=== PATIENT | female | born 1970 | race Caucasian/White ===

== ENCOUNTER 2020-01-11 09:25 | Outpatient (CLI) | payer OTHER, SELFPAY ==
--- NOTE | 2020-01-11 09:32 | IR_ITS ---
WS: [id number] CERVICAL MYELOGRAM HISTORY: Neck pain COMPARISON: MRI 08/25/2019 FLUOROSCOPY TIME: 1.1 minutes. Procedure, risks and complications were explained to the patient. Risks including bleeding, infection , headaches, allergic reaction and seizures. Consent has been obtained. With the patient in prone position the skin over the lumbar region is cleansed with ChloraPrep and an esthetized with lidocaine. 22-gauge spinal needle is inserted into the thecal sac at the appropriate level determined by fluoroscopy. Omnipaque 300; 12 ml is injected slowly under fluoroscopy with no co mplications. Needle bevel is perpendicular to the longitudinal fibers of the dura. Stylet is reinsert ed prior to removal of the needle. Patient tolerated the procedure well. Patient will proceed to CT f or further evaluation. Good injection of the thecal sac. Straightening of the normal cervical lordosis. Moderate to severe d egenerative disc disease at C5-6 and C6-7. C5 retrolisthesis by 2 mm with no significant change durin g flexion or extension. There are large osteophytes extend posteriorly from C5 and C6. With flexion a nd extension no significant instability. IR/IR myelogram sp cervical [id number] IMPRESSION: 1. Uncomplicated cervical myelogram. Please see CT report to follow. 2. Advanced degenerative disc disease at C5-6 and C6-7 with large osteophytes. 3. Slight retrolisthesis by 2 mm of C5. No instability.
--- NOTE | 2020-01-11 09:32 | CT_ITS ---
WS: [id number] CT CERVICAL MYELOGRAM HISTORY: Neck pain Technique: All CT scans at [facility] use at least one of these dose optimization techniq ues: automated exposure control; mA and/or kV adjustment per patient size (includes targeted exams wh ere dose is matched to clinical indication); or iterative reconstruction. DLP: 1495.88 mGycm COMPARISON: MRI C-spine 08/25/2019 Good opacification of thecal sac with contrast. Straightening of the normal cervical lordosis with slight reversal of curvature at C3-4. Moderate deg enerative disc disease at C5-6 and C6-7. Endplate osteophytes most significant at C5 and C6. Cranioce rvical junction is normal. Lateral masses of C1 and C2 are aligned odontoid is intact. There is sligh t RIGHT convex of the cervical spine. C1-C2: Normal. C2-C3: Normal. C3-C4: Mild asymmetric osteophytic ridging, slightly greater to the LEFT. Very minimal deformity of t he LEFT lateral thecal sac with no stenosis. C4-C5: Mild osteophytic ridging and shallow central disc protrusion and facet arthropathy. Mild bilat eral foraminal stenosis. C5-C6: Diffuse osteophytic ridging. Large RIGHT paracentral osteophyte extends posteriorly by 6.6 mm and effaces CSF on the RIGHT with cord contact and displacement. Severe RIGHT foraminal stenosis pred ominantly due to osteophyte. Mild stenosis on the LEFT and mild central stenosis. C6-C7: Diffuse osteophytic ridging, osteophytes extending greatest to the RIGHT with mild cord contac t and displacement. Moderate to severe RIGHT foraminal stenosis. Mild central and LEFT foraminal sten osis. LEFT thyroid is slightly enlarged which is probably multinodular. CT/CT cervical spine w con [id number] IMPRESSION: 1. Moderate degenerative disc disease at C5-6 and C6-7. 2. Large RIGHT paracentral osteophyte at C5-6 extends towards the cervical can al by 6.6 mm. Effacement of CSF and cord contact and displacement. 3. Severe RIGHT foraminal stenosis at C5-6 with mild central and LEFT foramina l stenosis. 4. Moderate RIGHT foraminal stenosis at C6-7 due to osteophyte disease. Mild c entral and LEFT foraminal stenosis at C6-7. 5. Straightening reversal of the normal cervical lordosis.
[2020-01-11] MEDS: iohexol 300 mg/mL 50 mL Btl INTRATHECA (10:23)
== END 2020-01-11 09:26 | disposition home or self-care (01) ==
LOC: RADWPI 09:29
PROVIDERS: Family Provider Internal Medicine; PCP Internal Medicine; Visit Provider Licensed Practical Nurse
DX: M50.020 Cervical disc disorder with myelopathy, mid-cervical region, unspecified level (principal); M47.892 Other spondylosis, cervical region; M48.02 Spinal stenosis, cervical region; M25.78 Osteophyte, vertebrae
CPT/HCPCS: 62302; 72040; 72126; Q9967

== ENCOUNTER → 2020-01-26 08:09 | Outpatient (BNVA) | payer OTHER, SELFPAY | PROVIDERS: Family Provider Internal Medicine; PCP Internal Medicine; Referring Provider Licensed Practical Nurse; Visit Provider Psychiatry & Neurology Neurology | DX: M54.12 Radiculopathy, cervical region (principal) | CPT/HCPCS: 95886; 95910 ==

== ENCOUNTER → 2020-10-19 13:45 | Outpatient (BNVA) | payer OTHER, SELFPAY | PROVIDERS: PCP Internal Medicine; Visit Provider Orthopaedic Surgery | DX: Z20.828 Contact with and (suspected) exposure to other viral communicable diseases (principal) | CPT/HCPCS: 87635 ==

== ENCOUNTER 2020-10-25 09:00 | Day surgery (SDC) | payer OTHER, SELFPAY ==
[2020-10-18 09:22] VITALS: BMI 34.2
--- NOTE | 2020-10-18 09:43 | ANES.PREANE2 ---
Pre-Anesthetic Assessment Pre-Anesthetic Assessment: Height/Weight: Height 1.57 m Weight 84.822 kg Preop Diagnosis: cervical stenosis Proposed Procedure: Operation Date: 10/25/20 09:25 Proposed Procedures p Anterior Cervical Discectomy & Fusion C 5/6 C6/7 ACDF 07847 11509 20881 14302 06957 M47.22(Not Applicable) - Mono Tinsley DO Was Beta Martita taken within 24 hours: N/A Social: Social History: No alcohol and No tobacco Exam: Pre-Anes Outpt Exam: alert, oriented x 3, clear to auscultation bilaterally and regular rate & rhythm Airway: Submandibular: WNL Cervical ROM: WNL MP: 2 Additional comments: Missing several on upper arch Pulmonary: Pulmonary: None reported CV/HEM: CV/HEM: HTN and None reported : : None reported Hepatic: Hepatic: None reported GI: GI: GERD Metabolic: Metabolic: Morbid obesity Musc/skel: Musc/skel: Weakness Comments: Neck pain, BUE numbness L>R Neuropsych: Neuropsych: None reported Anesthetic Plan: ASA status: 3 Anesthesia: General Risk of > 500 ml blood loss (7ml/kg in children): No PFSH Anesthesia PFSH: Medical History (Updated 09/08/20 @ 10:16 by Mono Tinsley DO) Cervical disc disorder with myelopathy of mid-cervical region Cervical spinal stenosis Hiatal hernia Left shoulder strain Surgical History History of shoulder surgery right History of tubal ligation Family History Mother Diabetes Hypertension Father Prostate cancer Hypertension Social History Smoking and tobacco status: never smoked Alcohol intake: never Household members: spouse Marital status: Current occupational status: employed and other Current occupation: [employer] History of recent travel: No Data Anesthesia Cardiac Studies: No Data to Display
[2020-10-25] VITALS (11 sets, daily range): BP systolic 118–171; BP diastolic 67–104; PULSE 88–115; RESP 12–19; TEMP 36.5–36.6; O2SAT 93–100
--- NOTE | 2020-10-25 | XR_ITS ---
WS: [id number] Cervical spine, AP and lateral C-arm fluoroscopy in the OR, 10/25/2020 Clinical Data: C5/C6; C6/C7 acdf Comparison: None. Findings: The patient has had an anterior cervical disc fusion of C5, C6 and C7. XR/XR cervical spine 3V* [id number] Impression: Anterior cervical disc fusion C5-C7.
--- NOTE | 2020-10-25 | SCC_ITS ---
Procedure Done: 1. Anterior diskectomy C5/6 2. Anterior discectomy C6/7 3. Insertion of cage C5/6 4. Insertion of Cage C6/7 5. Instrumentation with anterior plate from C5-C7 6. Use of allograft 26.2 seconds of fluoroscopic guidance, for a cumulative dose of 1.72 mGy, was provided to Dr. Tinsley by the radiology department. C-arm images of the cervical spine were saved for the patient's permanent record. LUANAD
[2020-10-25] MEDS: sodium chloride 0.9% 1,000 ML 30 ML IV (09:41)
--- NOTE | 2020-10-25 10:00 | P.ANESUD_ITS ---
Pre-Anesthetic Update Pre-Anesthetic Assessment: Date of Surgery/Procedure: 10/25/20 Preop Sofi gnosis: cervical stenosis Proposed Procedure: Operation Date: 10/25/20 10:45 Proposed Procedures p Anterior Cervical Discectomy & Fusion C 5/6 C6/7 ACDF 85986 04936 93537 24089 65397 M47.22(Not Applicable) - Mono Tinsley, DO Any changes to Pre-Anesthetic Assessment?: No Last Intake: Intake Last Liquid Date 10/24/20 Last Liquid Time 22:00 Last Solid Date 10/24/20 Last Solid Time 18:00 Vitals: Temperature 97.8 F 10/25/20 09:17 Temperature Source Temporal Artery S can 10/25/20 09:17 Pulse Rate 107 H 10/25/20 09:17 Respiratory Rate 18 10/25/20 09:17 Blood Pressure 171/104 10/25/20 09:17 Blood Pressure Fany n 126 10/25/20 09:17 Pulse Oximetry 100 10/25/20 09:17 Oxygen Delivery Me thod 10/25/20 09:17 Exam: Pre-Anes Outpt Exam: alert, oriented x 3, clear to auscultation bilaterally and regular rate & rhythm Cardiac Studies: No Data to Display
--- NOTE | 2020-10-25 11:35 | P.HP_ITS ---
Providers/Chief Complaint Primary Care Provider: Angelica Rausch MD Chief Complaint: C 5/6 C6/7 ACDF History of Present Illness HPI: This is a 50 year old female patient here today for evaluation of her right elbow, left shoulder and neck pain that she began having after an injury 06/06/2019. Patient states that she was opening a dryer door and that she had a POP which began to cause pain. Patient states that the neck pain began october 06, 2019 and that the elbow pain she feels is from over compensation and began in October 2019. Onset: 06/06/20 Duration: year plus Characteristics: buring, sharp, aching Severity: mild Location: elbow on right left shoulder, and left neck. Radiating symptoms: Aggravating factors: movement Alleviating factors: nothing Neuro deficits: patient denies numbness, tingling, weakness, incontinence of bowel/bladder, saddle anesthesia. Prior tx: therapy and bracing Current symptoms: Denies fever(s) or anxiety Review of Systems Narrative: HPI: This is a new 50 year old female patient here today for evaluation of her right elbow, left shoulder and neck pain that she began having after an injury 06/06/2019. Patient states that she was opening a dryer door and that she had a POP which began to cause pain. Patient states that the neck pain began october 06, 2019 and that the elbow pain she feels is from over compensation and began in October 2019. Onset: 06/06/20 Duration: year plus Characteristics: buring, sharp, aching Severity: mild Location: elbow on right left shoulder, and left neck. Radiating symptoms: Aggravating factors: movement Alleviating factors: nothing Neuro deficits: patient denies numbness, tingling, weakness, incontinence of bowel/bladder, saddle anesthesia. Prior tx: therapy and bracing Current symptoms: Denies fever(s) or anxiety Medications/Allergies Home Medications Medication Instructions Recorded Confirmed Last Taken Type diphenhydramine HCl 25 mg tablet 25 mg PO .at bedtime PRN tab 11/18/19 10/25/20 10/24/20 22:00 History fluticasone propionate 50 1 spray INTRANASAL QDAY 11/18/19 10/25/20 10/24/20 22:00 History mcg/actuation nasal spray,suspension lisinopril 40 mg tablet 40 mg PO QDAY 01/10/25/20 10/23/20 22:00 History loratadine 10 mg tablet 10 mg PO QDAY 11/18/19 10/25/20 10/24/20 22:00 History pantoprazole 40 mg tablet,delayed 40 mg PO QDAY 11/18/19 10/25/20 10/24/20 22:00 History release [id number] Bone Stimulator #1 ea 09/08/20 Unknown Rx E0748 Bone Stimulator #1 ea 09/08/20 Unknown Rx hydrocodone 5 mg-acetaminophen 325 1 tab PO Q4H PRN 7 Days #60 tab 10/24/20 10/25/20 Unknown Rx mg tablet Allergies Allergy/AdvReac Type Severity Reaction Status Date / Time amoxicillin Allergy rash Verified 09/08/20 09:36 doxycycline Allergy vomiting Verified 09/08/20 09:36 egg Allergy rash Verified 09/08/20 09:36 PFSH Acute PFSH: Medical History (Updated 09/08/20 @ 10:16 by Mono Tinsley DO) Cervical disc disorder with myelopathy of mid-cervical region Cervical spinal stenosis Hiatal hernia Left shoulder strain Surgical History History of shoulder surgery right History of tubal ligation Family History Mother Diabetes Hypertension Father Prostate cancer Hypertension Social History Smoking and tobacco status: never smoked Alcohol intake: never Household members: spouse Marital status: Current occupational status: employed and other Current occupation: [employer] History of recent travel: No Vitals/I&O/Wt Last Vital Signs Temp 97.8 F 10/25/20 09:17 Pulse 107 H 10/25/20 09:17 Resp 18 10/25/20 09:17 BP 171/104 10/25/20 09:17 Pulse Ox 100 10/25/20 09:17 Physical Exam Narrative: EXAM NARRATIVE: CONSTITUTIONAL: The patient is a normal appearing [] in no apparent distress. GENERAL: Patient in no acute distress. CARDIAC: Regular rate and rhythm. CHEST: Normal inspiratory effort, normal respiratory rate. ABDOMEN: Soft and nontender. SKIN: Clear, warm and intact. NEURO?PSYCH: The patient is alert and oriented to person, place and time. Sensorv /SILT Motor StrengthShoulder abduction C5 5/5Wrist extension C6 5/5Elbow extension C7 5/5Hand [employer] Draftsman C8 5/5Finger abduction T15/5 Radial/ Ulnar/ Median n intact LowerSensory (SILT)Motor StrengthHin flexion L2/3Ant/inner thigh 5/5Hip adduction L2/3 5/5Knee extension L4 Lat thigh, 5/5Toe dorsiflexion L5 5/5Ankle dorsiflexion L5/ P62Vczndcd flexion S1 5/5 DTRBleeps 2+Triceps 2+Brachioradialis 2+Patellar 2+Achilles 2+ MUSCULOSKELETAL: [] UPPEREXTREMITIES: The patient had full active ROM in fingers, wrist, elbow, and shoulder. The patient demonstrated ability to fully flex/extend/abduct/adduct fingers, make ok sign, cross 2nd/3rd digits, extend 1st digit fully.. Radial pulse 2+, CR<2 seconds. LOWER EXTREMITIES: Pt has full, active ROM of toes, ankle, knee, and hip. Dorsalis pedis/posterior tibialis pulses 2+, CR<2 seconds. SPINE: Skin warm, dry, intact. A&P Additional A&P Information Cervical spondylosis with radiculopathy Attestations Medical Necessity Statement*: will d/c after surgery Coding Level of Care Code Acute Hand Cloth Cutter for Tom Diane
--- NOTE | 2020-10-25 11:35 | W.PM.OPSUD ---
Surgery/Procedure H&P Update DATE OF PROCEDURE: October 25, 2020 DATE H&P PERFORMED: 10/25/20 H&P UPDATE INFORMATION: I have examined patient prior to procedure and No changes to prior documentation PREOP DIAGNOSIS: cervical stenosis PLANNED PROCEDURE: Operation Date: 10/25/20 10:45 Proposed Procedures p Anterior Cervical Discectomy & Fusion C 02/22 C6/7 ACDF 93674 79272 42815 21215 17805 M47.22(Not Applicable) - Mono Tinsley DO
[2020-10-25] MEDS: clindamycin 900 MG/50 ML PREMIX 100 MG IV (11:51)
--- NOTE | 2020-10-25 13:13 | SUR.OPER ---
Family Notified Of Patient's Status Via Phone.
--- NOTE | 2020-10-25 14:35 | P.OP_ITS ---
Operative Report Date of procedure: October 25, 2020 Pre-op Diagnosis: cervical stenosis Post-op diagnosis: same Procedure Done: 1. Anterior diskectomy C5/6 2. Anterior discectomy C6/7 3. Insertion of cage C5/6 4. Insertion of Cage C6/7 5. Instrumentation with anterior plate from C5-C7 6. Use of allograft Surgeon: Mono Tinsley Anesthesia: General Estimated blood loss (mL): 10 Condition: stable Disposition: PACU Procedure: 1. Anterior diskectomy C5/6 2. Anterior discectomy C6/7 3. Insertion of cage C5/6 4. Insertion of Cage C6/7 5. Instrumentation with anterior plate from C5-C7 6. Use of allograft Patient is brought to the operative suite placed in the supine position after neuro monitoring was hooked up. Patient had neuro monitoring hooked up prior to positioning. Patient was positioned in neuro monitoring was equal to baseline. Patient was then prepped and draped normal sterile fashion. Skin was made over the anterior neck at the C5 667 level confirmed under C-arm guidance platysmas was split and blunt dissection was made down to the C5-6 and C6-7 level retractors were placed. [place] pins were placed at C5-6 pin and C5 on C6 bodies distraction was performed and then microscope was brought in. Discectomy was performed at C5-6. Once the discectomy was performed was done using curettes Kerrisons high-speed drill osteophytes were taken down both anteriorly and posteriorly and then a [place]ison rongeur was used to take down the ligament and the disc posteriorly along with the disc osteophyte complex. Once this was opened then a trial was placed up to size 6 and then the size 6 cage from [place] was placed packed with osteobone graft. Prior to this the foramen were opened to ensure that the C6 and C7 nerve roots were decompressed. Next attention was brought to the see 6 7 level. The [place] pin remained in the C6 body [place] pin was then placed into the C7 body and distracted microscope was again brought in discectomy was performed using curettes high-speed bur and Kerrison rongeurs. The Kerrison rongeur was used to open the foramen. Bilaterally. A size 7 cage was placed at this level packed with osteoamp. Once this was completed then a plate from [place] was placed 2 screws were placed each vertebral body. 2 at C5-C6 to C7. AP lateral fluoroscopy ensured that the plate and screws were in appropriate position along with the cages. Wounds were then irrigated. Platysmas was closed with 2-0 Vicryl skin was closed with 2-0 Vicryl and Monocryl suture and glue sterile dressings applied patient placed in soft collar and transferred to the PACU in stable condition
--- NOTE | 2020-10-25 16:07 | ANE.PACU2 ---
Inpatient post-anesthesia follow up: Airway intact: Yes Vital signs: Temperature 98 F Pulse Rate 103 Respiratory Rate 18 Blood Pressure 154/98 Pulse Oximetry 95 Oxygen Delivery Me thod Room Air Oxygen Flow Rate 8 Fraction of Inspir ed Oxygen Hydration adequate: Yes Nausea and vomiting: No Pain level: 2 Mental status: Baseline
== END 2020-10-25 17:10 | disposition home or self-care (01) ==
PROVIDERS: PCP Internal Medicine; Visit Provider Orthopaedic Surgery
PROC: 0RB30ZZ Excision of Cervical Vertebral Disc, Open Approach (ICD-10-PCS; CPT 22551; principal; 2020-10-25 10:30)
DX: M48.02 Spinal stenosis, cervical region (principal); I10 Essential (primary) hypertension; K21.9 Gastro-esophageal reflux disease without esophagitis; E66.01 Morbid (severe) obesity due to excess calories; Z68.34 Body mass index [BMI] 34.0-34.9, adult
CPT/HCPCS: 20930; 22551; 22552; 22845; 22853 ×2; 12345; 72040; 76000; 96365; C1713; J0330; J1100; J1170; J1885; J2370; J2405; J2704; J3010; J3490; J7030

== ENCOUNTER → 2020-12-14 10:04 | Outpatient (BNVA) | payer OTHER, SELFPAY | PROVIDERS: PCP Internal Medicine; Visit Provider Orthopaedic Surgery | DX: M47.22 Other spondylosis with radiculopathy, cervical region (principal); Z48.89 Encounter for other specified surgical aftercare; Z98.1 Arthrodesis status | CPT/HCPCS: 72040 ==

== ENCOUNTER → 2021-01-18 08:31 | Outpatient (BNVA) | payer OTHER, SELFPAY | PROVIDERS: PCP Internal Medicine; Visit Provider Orthopaedic Surgery | DX: Z48.89 Encounter for other specified surgical aftercare (principal); M47.22 Other spondylosis with radiculopathy, cervical region | CPT/HCPCS: 72040 ==

== ENCOUNTER → 2021-02-23 13:42 | Outpatient (BNVA) | payer OTHER, SELFPAY | PROVIDERS: PCP Internal Medicine; Visit Provider Orthopaedic Surgery | DX: Z01.812 Encounter for preprocedural laboratory examination (principal); Z20.822 Contact with and (suspected) exposure to COVID-19 | CPT/HCPCS: 87635 ==

== ENCOUNTER 2021-03-05 10:34 | Day surgery (SDC) | payer OTHER, SELFPAY ==
[2021-03-02 14:14] VITALS: BMI 30.5
[2021-03-05 10:48] VITALS: BP 154/124; PULSE 111; RESP 18; TEMP 36.6; O2SAT 99
[2021-03-05] MEDS: sodium chloride 0.9% 1,000 ML 30 ML IV (11:29)
[2021-03-05] MEDS: midazolam 1 mg/mL INJ 2 mL 2 MG IVP (12:47)
--- NOTE | 2021-03-05 13:01 | W.PM.OPSUD ---
Surgery/Procedure H&P Update DATE OF PROCEDURE: March 05, 2021 DATE H&P PERFORMED: 02/07/21 PREOP DIAGNOSIS: Left shoulder strain PLANNED PROCEDURE: Operation Date: 03/05/21 12:05 Proposed Procedures p Shoulder Arthroscopy 84515 S46.912D M24.012(Left) - Archie Stephens MD
--- NOTE | 2021-03-05 13:05 | P.ANESUD_ITS ---
Pre-Anesthetic Update Pre-Anesthetic Assessment: Date of Surgery/Procedure: 03/05/21 Preop Sofi gnosis: Left shoulder strain Proposed Procedure: Operation Date: 03/05/21 12:05 Proposed Procedures p Shoulder Arthroscopy 80002 S46.912D M24.012(Left) - Archie Stephens MD Any changes to Pre-Anesthetic Assessment?: No Changes from Pre-Anesthetic Assessment: BP slightly better, will plan to proceed with GA and interscalene nerve blk in otherwise healthy patient. Vitals: Temperature 97.8 F 03/05/21 10:48 Temperature Source Temporal Artery S can 03/05/21 10:48 Pulse Rate 111 H 03/05/21 10:48 Respiratory Rate 18 03/05/21 10:48 Blood Pressure 154/124 03/05/21 10:48 Blood Pressure Fany n 134 03/05/21 10:48 Pulse Oximetry 99 03/05/21 10:48 Oxygen Delivery Me thod 03/05/21 10:53 Exam: Pre-Anes Outpt Exam: alert, oriented x 3, clear to auscultation bilaterally and regular rate & rhythm Cardiac Studies: No Data to Display
--- NOTE | 2021-03-05 13:06 | ANES.PROC ---
Anesthesia Procedures Procedure/Date: 03/05/21 Nerve Block ^: Nerve Block 1: Main Anesthesia: general anesthesia Time Out Performed: Yes Consent: requested by attending/covering physician, from patient, risks and benefits reviewed and patient agrees to proceed Nerve block location: interscalene (left) Anesthesia monitors applied: pulse oximetry, EKG, BP cuff and oxygen Nerve block position: semi sitting Anesthetic Used: ropivicaine 0.5% Amount of anesthesia used (mL): 30 Ultrasound used to: recognize landmarks Nerve Stimulator Used?: No Interscalene/Femoral BLK: 2 stimuplex 22 g needle used for position and inplane approach and visualize local anesthetic spread Injection: neg aspiration of heme Patient Tolerated Procedure: well
--- NOTE | 2021-03-05 13:56 | PC.NURSE ---
1247- Nerve block done for left shoulder surgery. Pt was monitored throughout the procedure with O2 sat and HR. O2 sat remained from 93-96%. Pt michelle procedure well.
[2021-03-05] MEDS: EPINEPHrine 1 mg/mL INJ 2 MG XX (14:21)
--- NOTE | 2021-03-05 14:55 | PM.OP ---
Operative Report Date of procedure: March 05, 2021 Pre-op Diagnosis: Left shoulder strain Post-op diagnosis: same Post-op Diagnosis: Tear left shoulder anterior and superior labrum Procedure Done: Limited debridement left glenohumeral joint, open biceps tenodesis Implants: [employer] Q fix x2 Pathology: none sent Surgeon: Archie Stephens Anesthesia: General and Nerve Block (Interscalene block) Estimated blood loss (mL): 25 Findings: The patient had unstable biceps anchor and anterior superior labrum. Antral degeneration of the labrum and a anterior superior flap tear was identified. The humeral head and glenoid were free of chondromalacia. There was minimal undersurface tearing of the supraspinatus tendon no significant bursal tearing. There is minimal subacromial spurring. Condition: stable Disposition: PACU Procedure: The patient was taken to the operating room after interscalene block was provided. She was given 2 g of Ancef and a general anesthesia. She is positioned in the lateral position with the left arm in 10 pounds of traction. A posterior portal was made 2 cm inferior and medial to the posterior corded acromion. A scope cannula and trocar were driven into the glenohumeral joint. An 8 mm inflow cannula was placed anteriorly. The diagnostic portion of the arthroscopy was performed. Initially the flap tear was seen in the anterior superior labrum and this was debrided back with an incisor shaver. The De [employer]hew Werewolf probe was then used to debride back the central degeneration in the labrum to a stable base. The biceps anchor was probed with instability the biceps noted. A spinal needle was passed through the biceps and a PDS suture passed through the biceps tendon. It was secured with 2 half hitches. The biceps was released from its superior insertion with the [employer] Werewolf probe. The scope was moved to the subacromial space. Bursal tissue was removed to allow visualization of the rotator cuff. The small rent where the cannula passed through the cuff was identified but no bursal tearing noted. The undersurface acromion was inspected and found to be free of any significant spurring. Next a 3 cm long incision was made in the superior axillary fold and dissection carried down bluntly to the bicipital groove. The patient had a bit larger arm and this brought us to the level of the superior pectoralis major insertion. The biceps tendon was then drawn out through this incision. The bicipital groove was debrided with electrocautery. 2 Q fix 1.8 mm mini anchors were placed in the anterior humerus at this leve. Sutures were passed around the biceps in a luggage tag fashion and secured drawing to the biceps down to the humerus just distal to the bicipital groove. The free end was then sutured to the pectoral major tendon with a aqqqph-sh-etfrh stitch and excessive tendon was cut away with a scalpel. The subcutaneous tissues were closed with 0 Vicryl and the axillary incision with simple 3-0 Prolene. Portals were closed with 3-0 Prolene. Sterile dressings were applied. The patient was placed in a sling, extubated, and taken to recovery in stable condition.
[2021-03-05 15:05] VITALS: BP 155/94; PULSE 97; RESP 18; TEMP 36.1; O2SAT 100
[2021-03-05 15:10] VITALS: BP 149/97; PULSE 93; RESP 19; O2SAT 93
--- NOTE | 2021-03-05 15:11 | P.PCN_ITS ---
PACU note PACU note: VSS, Good respiratory effort, report to [employer] MANAGER Post-Anesthesia Exam: awake
--- NOTE | 2021-03-05 15:11 | PM.PACU ---
PACU note PACU note: VSS, Good respiratory effort, report to [employer] Post-Anesthesia Exam: awake
--- NOTE | 2021-03-05 15:12 | SUR.PHASEI ---
PT SLEEPS QUIETLY WITH GOOD VSS, IV PATENT LT SHOULDER DRESSING D/I SLING TO LT ARM DISTAL FINGERS PINK WARM WITH FAST CAP REFILL NOTED. PT AWAKES TO VOICE VERBALLY DENIES PAIN , STATES ( IM JUST SLEEPY)
[2021-03-05 15:15] VITALS: BP 146/95; PULSE 94; RESP 18; O2SAT 97
[2021-03-05 15:20] VITALS: BP 146/92; PULSE 94; RESP 18; TEMP 36.3; O2SAT 96
[2021-03-05 15:25] VITALS: BP 143/119; PULSE 95; RESP 18; TEMP 36.3; O2SAT 96
--- NOTE | 2021-03-05 15:49 | ANE.PACU2 ---
Inpatient post-anesthesia follow up: Airway intact: Yes Vital signs: Temperature 97.4 F Pulse Rate 95 Respiratory Rate 18 Blood Pressure 143/119 Pulse Oximetry 96 Oxygen Delivery Me thod Room Air Oxygen Flow Rate Fraction of Inspir ed Oxygen Hydration adequate: Yes Nausea and vomiting: No Pain level: 2 Mental status: Baseline
== END 2021-03-05 15:58 | disposition home or self-care (01) ==
PROVIDERS: PCP Internal Medicine; Visit Provider Orthopaedic Surgery
PROC: (CPT 29805; principal; 2021-03-05 11:45)
DX: S43.432A Superior glenoid labrum lesion of left shoulder, initial encounter (principal); X58.XXXD Exposure to other specified factors, subsequent encounter
CPT/HCPCS: 23430; 29822; 64415; 76942; 96374; C1713; J0171; J0330; J0690; J1100; J2250; J2405; J2704; J2795; J3010; J3490; J7030

== ENCOUNTER 2021-04-02 07:53 | Outpatient (RCR) | payer OTHER, SELFPAY | END 2021-04-18 23:59 | disposition home or self-care (01) | LOC: SPT 07:53 | PROVIDERS: PCP Internal Medicine; Referring Provider Orthopaedic Surgery; Visit Provider Orthopaedic Surgery | DX: Z47.89 Encounter for other orthopedic aftercare (principal) | CPT/HCPCS: 97110; 97162 ==

== ENCOUNTER 2021-04-19 06:00 | Outpatient (RCR) | payer OTHER, SELFPAY | END 2021-05-19 23:59 | disposition home or self-care (01) | LOC: SPT 06:00 | PROVIDERS: PCP Internal Medicine; Referring Provider Orthopaedic Surgery; Visit Provider Orthopaedic Surgery | DX: Z47.89 Encounter for other orthopedic aftercare (principal) | CPT/HCPCS: 72040; 97110 ==

== ENCOUNTER → 2021-06-01 09:30 | Day surgery (SDC) | payer OTHER, SELFPAY ==
[2021-02-28 14:53] VITALS: BMI 31.6
[2021-03-01] VITALS (10 sets, daily range): BP systolic 150–196; BP diastolic 81–129; PULSE 75–91; RESP 12–24; TEMP 36.4; O2SAT 97–100
[2021-03-01] MEDS: acetaminophen 500 mg Tablet 1000 MG PO (09:01)
[2021-03-01] MEDS: sodium chloride 0.9% 1,000 ML 30 ML IV (09:01)
--- NOTE | 2021-03-01 09:24 | ANES.PREANE2 ---
Pre-Anesthetic Assessment Pre-Anesthetic Assessment: Height/Weight: Height 1.57 m Weight 78.471 kg Temp Pulse Resp BP Pulse Ox 97.6 F 85 18 150/103 98 03/01/21 08:34 03/01/21 08:34 03/01/21 08:34 03/01/21 08:34 03/01/21 08:34 Preop Diagnosis: Left shoulder strain Proposed Procedure: Operation Date: 03/01/21 09:50 Proposed Procedures p Shoulder Arthroscopy 72871 S46.912D M24.012(Left) - Archie Stephens MD Familial anesthetic complications: none Was Beta Martita taken within 24 hours: N/A Was Clonidine taken within 24 hours: N/A Last intake: Intake Last Liquid Date 02/28/21 Last Liquid Time 22:00 Last Solid Date 02/28/21 Last Solid Time 18:00 Social: Social History: No alcohol and No tobacco Exam: Pre-Anes Outpt Exam: alert, oriented x 3, clear to auscultation bilaterally and regular rate & rhythm Airway: Cervical ROM: WNL MP: 2 Dentition: Other (missing upper teeth) CV/HEM: CV/HEM: HTN GI: GI: GERD Musc/skel: Comments: neck pain, had had b/l UE numbness, but this improved after her neck surgery. Patient educated on increased risk of neuropathy developing with nerve block in setting of pre-existing nerve compromise. 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
--- NOTE | 2021-03-01 09:26 | ANES.PROC ---
Anesthesia Procedures Procedure/Date: 03/01/21 Nerve Block ^: Nerve Block 1: Main Anesthesia: general anesthesia Time Out Performed: Yes Consent: requested by attending/covering physician, from patient, risks and benefits reviewed and patient agrees to proceed Nerve block location: interscalene (L) Anesthesia monitors applied: pulse oximetry, EKG, BP cuff and oxygen Nerve block position: semi sitting Anesthetic Used: ropivicaine 0.5% and with decadron (3 mg) Amount of anesthesia used (mL): 20 Ultrasound used to: recognize landmarks, visualize and ID brachial plexus and visualize and ID interscalene groove Nerve Stimulator Used?: No Interscalene/Femoral BLK: other needle (2 payunk), visualize local anesthetic spread and no vascular puncture identified Injection: neg aspiration of heme Patient Tolerated Procedure: well and no complications Complications: none Additional Comments: Patient developed sinus bradycardia (40s) for approximately 1 minute, immediately post completion of block. States he felt light headed. Placed patient in supine position. HR back into NSR at rate of 70s with resolution of symptoms.
[2021-03-01] MEDS: labetalol 5 mg/mL SDV 20mL 10 MG IVP ×2 (10:27→10:50)
[2021-03-01] MEDS: hyDRALAzine 20 mg/mL INJ 1 mL 10 MG IVP (12:05)
--- NOTE | 2021-03-01 13:25 | SUR.PREOP ---
Case was cancelled due to blood pressure. Patient has appointment with her primary physician at 2:30 today
--- NOTE | 2021-03-01 14:30 | PM.MISC ---
Miscellaneous Note Note: Patient was hypertensive upon admission. However, 30 to 40 minutes after nerve block she went into hypertensive urgency (190s/110s). Upon questioning patient states she woke up with a headache this morning. She says headaches are unusual for her after she had her neck surgery. Attempts to lower the blood pressure to reasonable range included labetalol 20 mg and hydralazine 20 mg IV. These did not produce significant decreases in BP. D/t to uncontrolled hypertension w/ headaches refractory to IV meds, the decision was made to postpone surgery despite the unfortunate administration of the block. I recommended patient go to ER, but she insisted her BP was controlled at home. Patient informed me that she does have BP monitor at home. Together we decided patient could go home and monitor BP to see if hypertension resolved. I educated that if BP remains elevated at home or her headache does not go away that she should return to ER for continued attempts at lowering her BP.
== END ==
PROVIDERS: PCP Internal Medicine; Visit Provider Orthopaedic Surgery
PROC: (CPT 29805; principal; 2021-03-01 09:30)
DX: S46.912A Strain of unspecified muscle, fascia and tendon at shoulder and upper arm level, left arm, initial encounter (principal); X58.XXXA Exposure to other specified factors, initial encounter; Z53.8 Procedure and treatment not carried out for other reasons; I10 Essential (primary) hypertension; K21.9 Gastro-esophageal reflux disease without esophagitis
CPT/HCPCS: 64415; 76942; 87635; J0360; J1100; J2250; J2405; J2704; J2795; J3010; J3490; J7030

== ENCOUNTER 2022-02-05 08:25 | Day surgery (SDC) | payer BC, SELFPAY ==
[2022-02-04 08:30] VITALS: BMI 31.2
[2022-02-05] VITALS (8 sets, daily range): BP systolic 135–176; BP diastolic 82–112; PULSE 78–94; RESP 16; TEMP 36.2–36.7; O2SAT 95–100
--- NOTE | 2022-02-05 08:58 | P.ANESASSM_ITS ---
Pre-Anesthetic Assessment Height/Weight: Height 1.57 m Weight 77.564 kg Temp Pulse Resp BP Pulse Ox 97.7 F 94 16 176/112 98 02/05/22 08:37 02/05/22 08:37 02/05/22 08:37 02/05/22 08:37 02/05/22 08:37 Preop Diagnosis: post menopausal bleeding Operation Date: 02/05/22 09:25 Proposed Procedures p Hysteroscopy w/ Myosure 30717/14921/47912/n95.0(Not Applicable) - Annika Foster MD s Dilation And Curettage (D&C)(Not Applicable) - Annika Foster MD Familial anesthetic complications: None Was Beta Martita taken within 24 hours: N/A Was Clonidine taken within 24 hours: N/A Social No alcohol and No tobacco Exam alert, oriented x 3, clear to auscultation bilaterally and regular rate & rhythm Airway Submandibular: within normal limits Cervical ROM: Other (some limitation post fixation) Mallampati: Class II Comments: Comments: Missing some on upper arch CV/HEM Hypertension GI Gastroesophageal Reflux Disease Anesthetic Plan ASA status: 2 Anesthesia: General Medications/Allergies Home Medications Medication Instructions Recorded Confirmed Last Taken Type diphenhydramine HCl 25 mg tablet 25 mg PO .at bedtime PRN tab 11/18/19 02/05/22 02/03/22 20:00 History (Benadryl Allergy) fluticasone propionate 50 1 spray INTRANASAL QDAY 11/18/19 02/05/22 02/05/22 06:00 History mcg/actuation nasal spray,suspension (Flonase Allergy Relief) lisinopril 40 mg tablet 40 mg PO QDAY 11/18/19 02/05/22 02/03/22 20:00 History loratadine 10 mg tablet (Claritin) 10 mg PO QDAY 11/18/19 02/05/22 02/03/22 20:00 History pantoprazole 40 mg tablet,delayed 40 mg PO QDAY 11/18/19 02/05/22 02/04/22 20:00 History release (Protonix) yzpcocdn-shooqhn-npy-iron 18 mg-FA 1 tab PO DAILY 01/25/22 02/05/22 02/04/22 07:00 History 400 mcg-vit K 80 mcg-hrb#244 tablet ([employer]) Allergies Allergy/AdvReac Type Severity Reaction Status Date / Time hydrocodone Allergy Severe Unconscious Verified 01/31/22 14:06 Sulfa (Sulfonamide Allergy Intermediate Unknown Verified 01/31/22 14:06 Antibiotics) amoxicillin Allergy rash Verified 01/31/22 14:06 doxycycline Allergy vomiting Verified 01/31/22 14:06 egg Allergy rash Verified 01/31/22 14:06 [facility] Anesthesia Medical History (Updated 01/31/22 @ 15:04 by Annika Foster MD) Cervical disc disorder with myelopathy of mid-cervical region Cervical spinal stenosis Hiatal hernia Hypertension Left shoulder strain Surgical History History of shoulder surgery right History of tubal ligation Family History Mother Diabetes Hypertension Father Prostate cancer Hypertension Cancer Denies family history of Heart disease Hyperlipidemia Bleeding disorder Stroke Social History Smoking and tobacco status: never smoked Alcohol intake: never Household members: spouse Marital status: Current occupational status: employed and other Current occupation: [employer] History of recent travel: No Data Anesthesia Cardiac Studies: No Data to Display
[2022-02-05] MEDS: sodium chloride 0.9% 1,000 ML 30 ML IV (09:00)
[2022-02-05] MEDS: ketorolac 30 mg/mL INJ IVP (09:13)
--- NOTE | 2022-02-05 09:58 | W.PM.OPSUD ---
Surgery/Procedure H&P Update DATE OF PROCEDURE: February 05, 2022 DATE H&P PERFORMED: 01/31/22 H&P UPDATE INFORMATION: I have reviewed H&P completed within last 30 days, I have examined patient prior to procedure and No changes to prior documentation PREOP DIAGNOSIS: post menopausal bleeding PLANNED PROCEDURE: Operation Date: 02/05/22 09:25 Proposed Procedures p Hysteroscopy w/ Myosure 89125/77171/75389/n95.0(Not Applicable) - Annika Foster MD s Dilation And Curettage (D&C)(Not Applicable) - Annika Foster MD Related Problem List Diagnoses (1) PMB (postmenopausal bleeding):
--- NOTE | 2022-02-05 11:01 | PM.OP ---
Operative Report Date of procedure: February 05, 2022 Pre-op diagnosis: Preop Diagnosis post menopausal bleeding Post-op diagnosis: same Post-op findings: 7 week sized uterus with several endometrial polyps and a possible fibroid Procedure done: Hysteroscopy, dilation and curettage with myosure Specimens removed/disposition: endometrial curettings to pathology Surgeon: Annika Foster Anesthesia: MAC Estimated blood loss (mL): 100 IV fluids (mL): 600 Complications: none Findings: 7 week sized uterus and several endometrial polyps and one fibroid Condition: stable Disposition: PACU Procedure: The patient was taken to the operating room where monitored anesthesia was administered and to be adequate. She was prepped and draped in the normal sterile fashion in the dorsal lithotomy position in [facility]. A weighted speculum was placed into the vagina and the anterior lip of the cervix grasped with a single-tooth tenaculum. The uterus was sounded to 7 cm. The cervix was dilated to 16 Syriac. The hysteroscope was advanced into the endometrial cavity. There were several endometrial polyps as well as a possible fibroid visualized. The MyoSure device was activated and the tissue was removed. Pictures were taken pre and post procedure. All instruments were removed. The patient tolerated the procedure well. Sponge lap and needle counts were correct x3. She was taken to the recovery room in stable condition.
--- NOTE | 2022-02-05 11:06 | PM.DCS ---
Discharge Providers Date of Admission: 02/05/22 Date of Discharge: February 05, 2022 Attending Provider at Admission: Cristian Attending Provider at Discharge: Annika Foster MD Primary Care Provider: Angelica Rausch MD Diagnoses at Discharge Discharge Diagnosis (1) PMB (postmenopausal bleeding): Status: Acute Reason for Visit Reason for Visit: post menopausal bleeding Hospital Course Hospital Course The patient was admitted for surgery. She did well postoperatively and was ready for discharge. Discharge Data Studies Completed and Pending Pending at discharge Category Date Time Status ES surgery / GI images Routine Exams 02/05/22 09:40 Taken Pathology: Surgical [PTH] Routine Pth 02/05/22 10:49 Ordered Vitals Last Vital Signs Temp 97.7 F 02/05/22 08:37 Pulse 94 02/05/22 08:37 Resp 16 02/05/22 08:37 BP 170/98 02/05/22 09:13 Pulse Ox 98 02/05/22 08:37 Discharge Plan Discharge Patient Disposition: Home Condition: Stable Prescriptions: Continued [employer] 18-400-80 mg-mcg-mcg tablet 1 tab PO DAILY 0RF lisinopril 40 mg tablet 40 mg PO QDAY 0RF pantoprazole [Protonix] 40 mg tablet,delayed release (DR/EC) 40 mg PO QDAY 0RF diphenhydramine HCl [Benadryl Allergy] 25 mg tablet 25 mg PO .at bedtime PRN (Reason: Itching) 0RF loratadine [Claritin] 10 mg tablet 10 mg PO QDAY 0RF fluticasone propionate [Flonase Allergy Relief] 50 mcg/actuation spray,suspension 1 spray INTRANASAL QDAY 0RF Discharge Orders: Discharge Order (Routine); Ordered 02/05/22 Ordered By: Annika Foster Discharge Attestations Time Spent in Discharge Care*: less than 30 min Quality Metrics Clinical Quality Measures [ No reported AMI, CVA or VTE this stay] Coding Level of Care Code Acute Chg FW DC note Diagnoses PMB (postmenopausal bleeding) N95.0
--- NOTE | 2022-02-05 11:48 | ANE.PACU2 ---
Inpatient post-anesthesia follow up: Airway intact: Yes Vital signs: Temperature 98.0 F Pulse Rate 78 Respiratory Rate 16 Blood Pressure 144/82 Pulse Oximetry 98 Oxygen Delivery Me thod Room Air Oxygen Flow Rate 6 Fraction of Inspir ed Oxygen Hydration adequate: Yes Nausea and vomiting: No Pain level: 2 Mental status: Baseline
== END 2022-02-05 12:06 | disposition home or self-care (01) ==
PROVIDERS: PCP Internal Medicine; Visit Provider Obstetrics & Gynecology
PROC: 0UDB8ZZ Extraction of Endometrium, Via Natural or Artificial Opening Endoscopic (ICD-10-PCS; CPT 58558; principal; 2022-02-05 09:15)
PROC: (CPT 58120; 2022-02-05 09:15)
DX: N95.0 Postmenopausal bleeding (principal); K21.9 Gastro-esophageal reflux disease without esophagitis; I10 Essential (primary) hypertension
CPT/HCPCS: 58558; 88305; J0690; J1885; J2704; J3010; J7030

== ENCOUNTER → 2022-06-17 08:01 | Outpatient (BNVA) | payer BC, SELFPAY | PROVIDERS: PCP Internal Medicine; Visit Provider Obstetrics & Gynecology | DX: N85.01 Benign endometrial hyperplasia (principal) | CPT/HCPCS: 88305 ==

== ENCOUNTER 2022-07-30 12:24 | Observation (INO) | payer BC, SELFPAY ==
[2022-07-29 14:01] VITALS: BMI 30.5
[2022-07-30] VITALS (16 sets, daily range): BP systolic 137–163; BP diastolic 86–99; PULSE 68–106; RESP 12–28; TEMP 36.3–36.9; O2SAT 94–100; BMI 30.5
[2022-07-30] MEDS: sodium chloride 0.9% 1,000 ML 30 ML IV (09:23)
[2022-07-30] MEDS: phenazopyridine 100 mg Tablet 200 MG PO ×3 (09:23→21:19)
[2022-07-30] MEDS: acetaminophen 1,000 MG/100 ML PIGGYBACK 400 MG IV (09:23)
[2022-07-30] MEDS: scopolamine 1.5 Patch 1 PATCH TRANSDERMA (09:23)
[2022-07-30] MEDS: gabapentin 300 mg Capsule PO (09:24)
[2022-07-30] MEDS: CELEcoxib 200 mg Capsule 400 MG PO (09:24)
--- NOTE | 2022-07-30 09:27 | P.OP_ITS ---
Operative Report Date of procedure: July 30, 2022 Pre-op diagnosis: Preop Diagnosis Simple endometrial hyperplasia, adenomyosis, pmb Post-op diagnosis: same Procedure done: LAVH, BSO, mid urethral sling, cystoscopy Implants: mid urethral sling Specimens removed/disposition: uterus, tubes, ovaries to pathology Surgeon: Annika Foster Anesthesia: General Estimated blood loss (mL): 50 IV fluids (mL): 1,200 Urine output (mL): 100 Complications: none Findings: 6 week sized uterus, normal appearing tubes and ovaries Condition: stable Disposition: PACU Procedure: The patient was taken to the operating room where general anesthesia was administered and found to be adequate. She was prepped and draped in the normal sterile fashion in the dorsal lithotomy position in [facility]. A Vera catheter was placed. A weighted speculum was placed into the vagina and the anterior lip of the cervix was grasped with a single tooth tenaculum. The Zumi uterine manipulator was placed. The weighted speculum was removed. The gloves were changed and attention was turned to the abdomen. A 5 mm supraumbilical incision was made. Using a 5 mm port with the camera, the port was placed into the abdomen. The abdomen was insufflated. Two low, lateral 5 mm ports were placed on the left and right under direct visualization from the camera. The right tube was grasped and elevated. Using the laparoscopic cautery, the infundibulopelvic ligament was ligated inferior to the ovary. The mesosalpinx w as cauterized to the cornua. This was performed the same way on the left. The uteroovarian ligaments as well as the round ligaments were ligated. Attention was then turned to the vaginal portion of the procedure. The weighted speculum was placed into the vagina. The zumi manipulator was removed. The single tooth tenaculum was removed and replaced with the alirio's tenaculum. 10 mL of dilute Pitressin was injected at the vesicovaginal junction. A circumferential incision was made at the vesicovaginal junction and the vaginal mucosa reflected cephalad. The posterior peritoneum was entered sharply with the Metzenbaum scissors and the long weighted speculum replaced. Using the Sophie clamps the uterosacral ligaments were clamped cut and suture- ligated. The anterior peritoneum was entered sharply with the metzenbaum scissors. Then sequentially the uterine arteries and cardinal ligaments were clamped cut and suture-ligated. A single-tooth tenaculum was used to deliver the uterus. The remaining segement of the utero-ovarian ligaments were clamped cut and suture-ligated bilaterally and the specimen was removed. There was good hemostasis with only mild bleeding from the cuff. The peritoneum was closed with a pursestring using 2-0 Vicryl. The vaginal cuff was closed with 0 Vicryl in a running locked pattern incorporating the uterosacral ligaments into the lateral aspects of the vaginal cuff. An Allis clamp was placed approximately 2 cm below the urethra and another placed approximately 3 cm distal from that. An incision was made between the 2. The tissue was sharply and bluntly dissected along the pubic ramus bilaterally. The sling was placed on the left first by going through the incision and attaching the sling to the obturator foramen membrane . The right side was performed in a similar fashion, placing the applicator through the incision and attaching to the obturator foramen membrane. The Vera catheter was removed and the cystoscope advanced into the bladder. Pyridum had previously been given and bilateral spill of orange fluid was noted from both ureteral orifices. There was no mesh noted to be in the bladder. 300 ml of sterile saline was placed into the bladder. The sling was tightened until there was no leakage with valsalva. The tag of suture was trimmed. The incision was repaired with 2-0 Vicryl in a running locked fashion. The Vera was replaced. Vaginal packing was placed for good hemostasis. The gloves and gowns were changed and attention was turned to the abdomen. The ports were closed with 2-0 monocryl with skin glue. The patient tolerated the procedure well. Sponge lap and needle counts were correct x3. She was taken to the recovery room in stable condition.
[2022-07-30 09:42] LABS: Basophils % 0.3 %; Eosinophils # 0.1 10^3/uL (0.0-0.8); Eosinophils % 2.1 %; Hemoglobin 13.6 g/dL (11.5-15.3); Lymphocytes # 1.4 10^3/uL (0.8-4.8); Lymphocytes % 24.3 %; Mean Corpuscular HGB Conc 32.4 g/dL (30.0-36.0); Mean Corpuscular Hemoglobin 30.8 pg (28.0-34.0); Mean Corpuscular Volume 95.2 fl (81-99); Mean Platelet Volume 10.4 fL (7.4-10.4); Monocytes # 0.4 10^3/uL (0.2-0.9); Monocytes % 6.1 %; Neutrophils # 3.85 10^3/uL (1.8-7.7); Neutrophils % 66.7 %; Nucleated Red Blood Cells % 0 %; Platelet Count 247 10^3/cmm (130-400); Red Blood Count 4.41 10^6/uL (4.1-5.3); Red Cell Distribution Width 12.2 % (12.1-15.1); White Blood Count 5.8 10^3/uL (4.0-10.0)
--- NOTE | 2022-07-30 09:49 | ANES.PREANE2 ---
Pre-Anesthetic Assessment Height/Weight: Height 1.57 m Weight 75.75 kg Temp Pulse Resp BP Pulse Ox O2 Del Method 98.4 F 106 H 18 152/99 99 07/30/22 09:05 07/30/22 09:05 07/30/22 09:05 07/30/22 09:05 07/30/22 09:05 07/30/22 09:05 Preop Diagnosis: Simple endometrial hyperplasia, adenomyosis, pmb Operation Date: 07/30/22 10:15 Proposed Procedures p Laparoscopic assisted vaginal hysterectomy, bilateral salpingo-oophorectomy 08666, Anterior and posterior repair 41872,N95.0,N80.0,N85.01(Not Applicable) - Annika Foster MD s Anterior Repair(Not Applicable) - Annika Foster MD s Posterior Repair(Not Applicable) - Annika Foster MD Familial anesthetic complications: none Was Beta Martita taken within 24 hours: N/A Was Clonidine taken within 24 hours: N/A Last intake: Intake Last Liquid Date 07/29/22 Last Liquid Time 20:30 Last Solid Date 07/29/22 Last Solid Time 20:30 Social No alcohol and No tobacco Exam alert, oriented x 3, clear to auscultation bilaterally and regular rate & rhythm Airway Submandibular: within normal limits Cervical ROM: Other (slightly limited ) Mallampati: Class II Dentition: other (missing some uppers ) History/ROS No significant history except as noted Pulmonary None reported CV/HEM Hypertension None reported Hepatic None reported GI Gastroesophageal Reflux Disease (well controlled) Metabolic None reported Musc/skel None reported Neuropsych None reported Anesthetic Plan ASA status: 2 Anesthesia: Anesthesia Evaluation and General Risk of > 500 ml blood loss (7ml/kg in children): No Medications/Allergies Home Medications Medication Instructions Recorded Confirmed Last Taken Type diphenhydramine HCl 25 mg tablet 25 mg PO .at bedtime PRN Itching 11/18/19 07/30/22 07/28/22 History (Benadryl Allergy) fluticasone propionate 50 1 spray intranasal QDAY 11/18/19 07/30/22 07/29/22 History mcg/actuation nasal spray,suspension (Flonase Allergy Relief) lisinopril 40 mg tablet 40 mg PO QDAY 11/18/19 07/30/22 07/28/22 History loratadine 10 mg tablet (Claritin) 10 mg PO QDAY 11/18/19 07/30/22 07/29/22 History pantoprazole 40 mg tablet,delayed 40 mg PO QDAY 11/18/19 07/30/22 07/29/22 History release (Protonix) rycucypy-odffcwm-uey-iron 18 mg-FA 1 tab PO DAILY 01/25/22 07/30/22 07/29/22 History 400 mcg-vit K 80 mcg-hrb#244 tablet ([employer]) medroxyprogesterone 2.5 mg tablet 2.5 mg PO DAILY #90 tabs 02/15/22 07/30/22 07/29/22 Rx (Provera) pumpkin seed extract-soy germ 300 300 cap PO UNK 06/17/22 07/30/22 07/29/22 History mg capsule (Azo Bladder Control) nitrofurantoin 100 mg capsule 100 mg PO BID 07/24/22 07/30/22 07/29/22 History Allergies Allergy/AdvReac Type Severity Reaction Status Date / Time hydrocodone Allergy Severe Unconscious Verified 07/29/22 13:58 Sulfa (Sulfonamide Allergy Intermediate Unknown Verified 07/29/22 13:58 Antibiotics) amoxicillin Allergy rash Verified 07/29/22 13:58 doxycycline Allergy vomiting Verified 07/29/22 13:58 egg Allergy rash Verified 07/29/22 13:58 Current Medications Generic Name Dose Route Start Last Admin Trade Name Freq PRN Reason Stop Dose Admin Sodium Chloride 1,000 mls @ 30 mls/hr 07/30/22 09:00 07/30/22 09:23 Sodium Chloride 0.9% IV 07/31/22 08:59 30 mls/hr .Q24H CHEPE Administration PFSH Anesthesia Medical History Cervical disc disorder with myelopathy of mid-cervical region Cervical spinal stenosis Hiatal hernia Hypertension Left shoulder strain Surgical History History of shoulder surgery right History of tubal ligation Family History Mother Diabetes Hypertension Father Prostate cancer Hypertension Cancer Denies family history of Heart disease Hyperlipidemia Bleeding disorder Stroke Social History Smoking and tobacco status: never smoked Current occupation: [employer] Anesthesia : 07/30/22 09:17 07/30/22 09:17 Short CBC 07/30/22 Range/Units 09:17 WBC 5.8 (4.0-10.0) 10^3/uL Hgb 13.6 (11.5-15.3) g/dL Hct 42.0 (37.0-47.0) % MCV 95.2 (81-99) fl Plt Count 247 (130-400) 10^3/cmm Neut % (Auto) 66.7 % Neut # (Auto) 3.85 (1.8-7.7) 10^3/uL BMP 07/30/22 09:17 Sodium Cancelled Potassium Cancelled Chloride Cancelled Carbon Dioxide Cancelled BUN Cancelled Creatinine Cancelled Glucose Cancelled Calcium Cancelled Cardiac Studies: No Data to Display
--- NOTE | 2022-07-30 09:52 | W.PM.OPSUD ---
Surgery/Procedure H&P Update DATE OF PROCEDURE: July 30, 2022 DATE H&P PERFORMED: 07/24/22 H&P UPDATE INFORMATION: I have reviewed H&P completed within last 30 days, I have examined patient prior to procedure and No changes to prior documentation PREOP DIAGNOSIS: Simple endometrial hyperplasia, adenomyosis, pmb PLANNED PROCEDURE: Operation Date: 07/30/22 10:15 Proposed Procedures p Laparoscopic assisted vaginal hysterectomy, bilateral salpingo-oophorectomy 01859, Anterior and posterior repair 19619,N95.0,N80.0,N85.01(Not Applicable) - Annika Foster MD s Anterior Repair(Not Applicable) - Annika Foster MD s Posterior Repair(Not Applicable) - Annika Foster MD Related Problem List Diagnoses (1) Simple endometrial hyperplasia: (2) Adenomyosis: (3) PMB (postmenopausal bleeding): (4) Uterine prolapse:
[2022-07-30] MEDS: ceFAZolin 2,000 MG in sodium chloride 0.9% (plus) 50 ML 100 MG IV ×3 (10:04→21:19)
[2022-07-30] MEDS: vasopressin 20 unit/mL INJ INJECTION (10:59)
--- NOTE | 2022-07-30 13:00 | SUR.PHASEI ---
1249 PT TO PACU 5 PT DOES NOT AWAKE TO VOICE, ABDOMEN SOFT PA PAD AND PACKING D/I SIEGEL TO DEPENDANT DRAINAGE WITH ORANGE CLEAR URINE TO TUBING AND BAG, STATLOCK TO RT INNER THIGH BILAT SCDS ON AND WORKING IV TO LT WRIST #!8 WITH NS 800 ML AT KVO RATE PER GRAVITY, RT WRIST #20 PIID, ID BRACELET TO LT WRIST, PT ID'D WITH 2 IDENTIFIERS. 1255 PT AWAKES TO VOICE, ORAL AIRWAY OUT PER [facility], VSS PT QUICKLY BACK TO SLEEP NO PROBLEMS NOTED PT WITH STRONG REGULAR RESPIRATIONS. MONITOR SR WITH NO ECTOPY NOTED.
--- NOTE | 2022-07-30 13:08 | SUR.PHASEI ---
PT NOW ON RA TRIAL, VSS.
--- NOTE | 2022-07-30 13:17 | SUR.PHASEI ---
PT MORE ALERT ORIENTED X 3 , PT TAKING OCCASIONAL ICE CHIPS, LAB AT BEDSIDE TO DRAW BMP REPEAT EARLIER LAB HEMALIZED.
--- NOTE | 2022-07-30 13:49 | SUR.PHASEI ---
PT TO OB 10 PT TO ROOM WITH PT PT AWAKE ALERT MOVES SELF TO BED WITH NO ASSIST, PT VOICED NO PROBLEMS OR COMPLAINTS, HANDOFF AT BEDSIDE TO LEO RN PT IV WITH PT AND PT ABDOMEN SOFT WITH 3 SITES UNCHANGED AND VAGINAL PACKING AND PA PAD D/I
--- NOTE | 2022-07-30 13:52 | ANE.PACU2 ---
Inpatient post-anesthesia follow up: Airway intact: Yes Vital signs: Temperature 97.4 F Pulse Rate 85 Respiratory Rate 12 Blood Pressure 150/86 Pulse Oximetry 94 Oxygen Delivery Me thod Room Air Oxygen Flow Rate 6 Fraction of Inspir ed Oxygen Hydration adequate: Yes Nausea and vomiting: No Pain level: 1 Mental status: Baseline
[2022-07-30 13:59] LABS: Anion Gap 12.3 (5-19); Blood Urea Nitrogen 15 mg/dL (6-20); Calcium 8.5 mg/dL (8.5-10.5); Carbon Dioxide 24 mmol/L (22-29); Chloride 107 mmol/L (98-107); Glomerular Filtration Rate 88.2 mL/min (90-130); Glucose 130 mg/dL (65-115); Osmolality Calculated 291 mOsm/kg (285-295); Potassium 4.3 mmol/L (3.5-5.1); Sodium 139 mmol/L (136-145)
[2022-07-30] MEDS: ketorolac 30 mg/mL INJ IVP ×2 (14:17→17:58)
[2022-07-30] MEDS: lisinopril 20 mg Tablet 40 MG PO (14:45)
[2022-07-30] MEDS: nitrofurantoin SR (BID) 100 mg Capsule PO (17:58)
[2022-07-30] MEDS: docusate sodium 100 mg Capsule PO (17:58)
[2022-07-30] MEDS: TRAMadol 50 mg Tablet PO (20:01)
[2022-07-30] MEDS: dextrose 5%-lactated ringers 1,000 ML 125 ML IV (20:02)
[2022-07-31] MEDS: ketorolac 30 mg/mL INJ IVP (00:46)
[2022-07-31 05:28] LABS: Hematocrit 38.6 % (37.0-47.0); Mean Corpuscular HGB Conc 33.7 g/dL (30.0-36.0); Mean Corpuscular Hemoglobin 31.4 pg (28.0-34.0); Mean Corpuscular Volume 93.2 fl (81-99); Mean Platelet Volume 10.1 fL (7.4-10.4); Platelet Count 282 10^3/cmm (130-400); Red Blood Count 4.14 10^6/uL (4.1-5.3); Red Cell Distribution Width 12.2 % (12.1-15.1)
[2022-07-31 07:41] VITALS: BP 143/83; PULSE 97; TEMP 36.9; O2SAT 97
[2022-07-31] MEDS: ibuprofen 800 mg tablet PO (10:06)
[2022-07-31] MEDS: docusate sodium 100 mg Capsule PO (10:07)
[2022-07-31] MEDS: phenazopyridine 100 mg Tablet 200 MG PO (10:07)
[2022-07-31 10:10] VITALS: BP 139/71; PULSE 106; RESP 16; TEMP 36.8; O2SAT 98
[2022-07-31] MEDS: TRAMadol 50 mg Tablet PO (10:12)
--- NOTE | 2022-07-31 10:16 | PM.DCS ---
Discharge Providers Date of Admission: 07/30/22 12:24 Date of Discharge: July 31, 2022 Attending Provider at Admission: Annika Foster MD Attending Provider at Discharge: Annika Foster MD Primary Care Provider: Angelica Rausch MD Diagnoses at Discharge Discharge Diagnosis (1) Simple endometrial hyperplasia: Status: Acute (2) Adenomyosis: Status: Acute (3) PMB (postmenopausal bleeding): Status: Acute (4) Uterine prolapse: Status: Acute Hospital Course Hospital Course The patient was admitted for surgery. She did well postoperatively and was ready for discharge on day #1 Physical Exam Narrative: The patient is doing well. She is up and ambulating. She has already showered this morning. Pain is well controlled. Normal post void residual Const: COMMON NORMALS: no acute distress, patient oriented x3, no limitations, healthy appearing, alert and well nourished GENERAL APPEARANCE: cooperative, comfortable, well kempt and well developed ORIENTATION/CONSCIOUSNESS: Yes awake, Yes oriented to person, Yes oriented to place and Yes oriented to time Resp: COMMON NORMALS: normal respiratory effort EFFORT & INSPECTION: Yes able to speak in complete sentences GI: COMMON NORMALS: Soft to palpation and non-tender PALPATION: Yes Soft to palpation Extremity: COMMON NORMALS: no calf tenderness Neuro: COMMON NORMALS: patient oriented x3 SENSORIUM/ORIENTATION: Yes alert, Yes oriented to person, Yes oriented to place and Yes oriented to time Psych: APPEARANCE: Yes well kempt Urinary Catheter Management: Vera: Cath Placed During This Visit: yes, but has since been removed by the nurse Reason for Continuing Indwelling Catheter: Decision to DC Catheter Urinary Catheter Date of Insertion: 07/30/22 Urinary Catheter Time of Insertion: 10:46 Date Urinary Catheter Removed: 07/31/22 Time Urinary Catheter Discontinued: 05:20 Discharge Data Studies Completed and Pending Pending at discharge Category Date Time Status Urine Culture Routine Lab 07/30/22 10:46 Received Pathology: Surgical [PTH] Routine Pth 07/30/22 12:06 Received Laboratory Results WBC 13.0 10^3/uL (4.0-10.0) H 07/31/22 05:24 RBC 4.14 10^6/uL (4.1-5.3) 07/31/22 05:24 Hgb 13.0 g/dL (11.5-15.3) 07/31/22 05:24 Hct 38.6 % (37.0-47.0) 07/31/22 05:24 MCV 93.2 fl (81-99) 07/31/22 05:24 MCH 31.4 pg (28.0-34.0) 07/31/22 05:24 MCHC 33.7 g/dL (30.0-36.0) 07/31/22 05:24 RDW 12.2 % (12.1-15.1) 07/31/22 05:24 Plt Count 282 10^3/cmm (130-400) 07/31/22 05:24 MPV 10.1 fL (7.4-10.4) 07/31/22 05:24 Neut % (Auto) 66.7 % 07/30/22 09:17 Lymph % (Auto) 24.3 % 07/30/22 09:17 Dukes % (Auto) 6.1 % 07/30/22 09:17 Eos % (Auto) 2.1 % 07/30/22 09:17 Baso % (Auto) 0.3 % 07/30/22 09:17 Neut # (Auto) 3.85 10^3/uL (1.8-7.7) 07/30/22 09:17 Lymph # (Auto) 1.4 10^3/uL (0.8-4.8) 07/30/22 09:17 Dukes # (Auto) 0.4 10^3/uL (0.2-0.9) 07/30/22 09:17 Eos # (Auto) 0.1 10^3/uL (0.0-0.8) 07/30/22 09:17 Baso # (Auto) 0.0 10^3/uL (0.0-0.1) 07/30/22 09:17 Nucleated RBC % (auto) 0 % 07/30/22 09:17 Nucleated RBCs # 0.0 /100WBC 07/30/22 09:17 Sodium 139 mmol/L (136-145) 07/30/22 13:17 Potassium 4.3 mmol/L (3.5-5.1) 07/30/22 13:17 Chloride 107 mmol/L (98-107) 07/30/22 13:17 Carbon Dioxide 24 mmol/L (22-29) 07/30/22 13:17 Anion Gap 12.3 (5-19) 07/30/22 13:17 BUN 15 mg/dL (6-20) 07/30/22 13:17 Creatinine 0.7 mg/dL (0.5-0.9) 07/30/22 13:17 GFR Calculation 88.2 mL/min (90-130) L 07/30/22 13:17 Glucose 130 mg/dL (65-115) H 07/30/22 13:17 Calculated Osmolality 291 mOsm/kg (285-295) 07/30/22 13:17 Calcium 8.5 mg/dL (8.5-10.5) 07/30/22 13:17 Blood Type A Positive 07/30/22 09:17 Rho(D) Type Positive 07/30/22 09:17 Antibody Screen Negative 07/30/22 09:17 Vitals Last Vital Signs Temp 98.4 F 07/31/22 07:41 Pulse 97 07/31/22 07:41 Resp 17 07/30/22 22:30 BP 143/83 07/31/22 07:41 Pulse Ox 97 07/31/22 07:41 O2 Del Method 07/31/22 07:41 O2 Flow Rate 6 07/30/22 13:00 Discharge Plan Discharge Patient Disposition: Home Condition: Stable Prescriptions: New docusate sodium 100 mg Capsule 100 mg PO BID Qty: 60 0RF ibuprofen 800 mg Tablet 800 mg PO Q8H Qty: 30 0RF tramadol 50 mg Tablet 50 mg PO Q4H PRN (Reason: Moderate Pain) Qty: 30 0RF Continued Alive Women's Energy 18-400-80 mg-mcg-mcg tablet 1 tab PO DAILY lisinopril 40 mg tablet 40 mg PO QDAY pantoprazole [Protonix] 40 mg tablet,delayed release (DR/EC) 40 mg PO QDAY diphenhydramine HCl [Benadryl Allergy] 25 mg tablet 25 mg PO .at bedtime PRN (Reason: Itching) loratadine [Claritin] 10 mg tablet 10 mg PO QDAY fluticasone propionate [Flonase Allergy Relief] 50 mcg/actuation spray,suspension 1 spray INTRANASAL QDAY Azo Bladder Control 300 mg capsule 300 cap PO UNK medroxyprogesterone [Provera] 2.5 mg tablet 2.5 mg PO DAILY Qty: 90 5RF nitrofurantoin 100 mg capsule 100 mg PO BID Rx Instructions: must administer with a meal/food Discharge Orders: Discharge Order (Routine); Ordered 07/31/22 Ordered By: Annika Foster Referrals: Annika Foster MD [Physician] - 08/05/22 2:00 pm (Your 2 week post op appointment is scheduled for 08/05 at 02:00pm. Your 6 week post op appointment is scheduled for 09/09 at 08:15am.) Patient Instructions: Ibuprofen (By mouth), Laxative, Stool Softeners (By mouth), Tramadol (By mouth), Laparoscopic Hysterectomy (DC), Opioid Safety Discharge Attestations Time Spent in Discharge Care*: less than 30 min Quality Metrics Clinical Quality Measures [ No reported AMI, CVA or VTE this stay] Coding Level of Care Code Acute Chg FW DC note Exam Expanded Problem Focused Diagnoses Simple endometrial hyperplasia N85.01 Adenomyosis N80.0 PMB (postmenopausal bleeding) N95.0 Uterine prolapse N81.4
[2022-07-31 11:35] VITALS: BP 139/71; PULSE 106; RESP 16; TEMP 36.8; O2SAT 98
== END 2022-07-31 11:40 | disposition home or self-care (01) ==
LOC: OBGYN 12:25
PROVIDERS: Admitting Provider Obstetrics & Gynecology; PCP Internal Medicine; Visit Provider Obstetrics & Gynecology
PROC: 0UT9FZZ Resection of Uterus, Via Natural or Artificial Opening With Percutaneous Endoscopic Assistance (ICD-10-PCS; CPT 57288; principal; 2022-07-30 10:05)
PROC: (CPT 57288; 2022-07-30 10:05)
DX: N81.4 Uterovaginal prolapse, unspecified (principal); N95.0 Postmenopausal bleeding; I10 Essential (primary) hypertension; K21.9 Gastro-esophageal reflux disease without esophagitis
CPT/HCPCS: 57288; 58552; 36415; 80048; 85025; 85027; 86850; 86900; 87086; 88307; 96374; C1713; G0378; J1100; J1170; J1885; J2250; J2405; J2704; J2710; J3010; J3490; J7030

== ENCOUNTER → 2023-08-03 11:03 | Outpatient (BNVA) | payer OTHER, SELFPAY | PROVIDERS: PCP Internal Medicine; Visit Provider Registered Nurse Neonatal Intensive Care | DX: R39.9 Unspecified symptoms and signs involving the genitourinary system (principal); N39.0 Urinary tract infection, site not specified | CPT/HCPCS: 87077; 87086; 87184 ==